=== PATIENT | female | born 1945 | race Caucasian/White ===

== ENCOUNTER 2017-03-14 20:52 | Inpatient (IN) | payer MEDICARE ==
[~2017-03-14] VITALS: Ht 160 cm; Wt 78.9 kg
[2017-03-14] MEDS ORDERED: SODIUM CHLORIDE 0.9% 1,000 ML IV ONE (20:59)
[2017-03-14] MEDS ORDERED: MORPHINE SULFATE 4 MG/ML, 1ML IVPush PRN ×2 (21:00→22:00)
[2017-03-14] MEDS ORDERED: SODIUM CHLORIDE FLUSH 10ML SYR IVF ONE (21:00)
[2017-03-14] MEDS ORDERED: ACETAMINOPHEN 500 MG TABLET PO ONE (21:00)
[2017-03-14] MEDS ORDERED: SODIUM CHLORIDE 0.9% 1,000ML IVBOLUS ONE ×2 (21:00→22:00)
[2017-03-14] MEDS ORDERED: ACETAMINOPHEN 500 MG TABLET ONE (21:20)
[2017-03-14] MEDS ORDERED: MORPHINE SULFATE 4 MG/ML, 1ML ONE (21:20)
[2017-03-14] MEDS ORDERED: ONDANSETRON 2MG/ML, 2ML ONE (21:53)
[2017-03-14] MEDS ORDERED: ONDANSETRON 2MG/ML, 2ML IVPush ONE (22:00)
[2017-03-14 22:52] LABS: BLOOD UREA NITROGEN 20 mg/dL (7-18)
[2017-03-14 22:55] LABS: ASPARTATE AMINO TRANSFERASE 35 U/L (15-37)
[2017-03-14 23:02] LABS: PATH.CAST-FLAG NOT PRESENT; SPERM-FLAG NOT PRESENT; SRC-FLAG NOT PRESENT; XTAL-FLAG NOT PRESENT; YLC-FLAG NOT PRESENT
[2017-03-14] MEDS ORDERED: OMNIPAQUE 350 MG/ML, 100ML BOTTLE ONE (23:15)
[2017-03-14] MEDS ORDERED: CEFTRIAXONE PMX 1GM/50ML 50 ML ONE (23:59)
[2017-03-15] MEDS ORDERED: CEFTRIAXONE PMX 1GM/50ML 50 ML IV ONE
[2017-03-15] MEDS ORDERED: SODIUM CHLORIDE 0.9% 1,000 ML IV SCH (01:34)
[2017-03-15] MEDS ORDERED: morphine SULFATE 10 MG/ML, 1ML IVPush PRN (02:00)
[2017-03-15] MEDS ORDERED: ONDANSETRON 2MG/ML, 2ML IVPush PRN (02:00)
[2017-03-15 02:30] VITALS: BP 110/73
[2017-03-15] MEDS: ENOXAPARIN 40 MG/0.4 ML SQ SCH (02:36)
[2017-03-15] MEDS ORDERED: LEVO25TA4 PO (02:49)
[2017-03-15] MEDS ORDERED: ATOR10TA9 PO (02:50)
[2017-03-15] MEDS ORDERED: Blood pressure med PO (02:51)
[2017-03-15] MEDS ORDERED: ASPI-496 PO (02:52)
[2017-03-15] MEDS ORDERED: CHOL2000 PO (02:52)
[2017-03-15] MEDS ORDERED: OXYcodone IR 5MG TABLET PO ONE (04:00)
[2017-03-15] MEDS: ACETAMINOPHEN 325 MG TABLET PO PRN ×3 (04:02→23:43)
[2017-03-15] MEDS ORDERED: ALBUTEROL SULFATE 2.5 MG/3 ML NPPB PRN (05:00)
[2017-03-15] MEDS ORDERED: LEVOTHYROXINE 25 MCG TABLET PO SCH (06:30)
[2017-03-15] MEDS ORDERED: OXYcodone IR 5MG TABLET PO PRN (06:30)
[2017-03-15 06:45] LABS: BLOOD UREA NITROGEN 15 mg/dL (7-18)
[2017-03-15 08:00] VITALS: BP_SYST 82; BP_SYST 84; BP_DIAS 48; BP_DIAS 55
[2017-03-15] MEDS: SENNA/DOCUSATE TABLET PO SCH (09:11)
[2017-03-15] MEDS: SODIUM CHLORIDE 0.9% 1,000 ML IV SCH ×2 (09:12→23:44)
[2017-03-15] MEDS ORDERED: SODIUM CHLORIDE 0.9%, 500ML IVBOLUS ONE (11:00)
[2017-03-15 13:54] VITALS: BP 96/58
[2017-03-15 17:59] VITALS: BP 110/71
[2017-03-15] MEDS ORDERED: ATOR20TA9 PO (20:17)
[2017-03-15] MEDS ORDERED: LEVO75TA5 PO (20:17)
[2017-03-15] MEDS ORDERED: LOSA1TAB16 PO (20:17)
[2017-03-15] MEDS: ASPIRIN 81 MG TABLET EC PO SCH (20:18)
[2017-03-15] MEDS ORDERED: ATORVASTATIN 10 MG TABLET PO SCH (21:00)
[2017-03-15 22:18] VITALS: BP 125/73
[2017-03-15] MEDS: ATORVASTATIN 20 MG TABLET PO SCH (22:33)
[2017-03-15] MEDS ORDERED: ALBU18HF INH (22:37)
[2017-03-15] MEDS ORDERED: FLUT12AE INH (22:38)
[2017-03-15] MEDS: CEFTRIAXONE PMX 1GM/50ML 50 ML IV SCH (23:43)
[2017-03-16] MEDS ORDERED: FLUT9.9S INH (00:01)
[2017-03-16 02:15] VITALS: BP 125/74
[2017-03-16] MEDS: ENOXAPARIN 40 MG/0.4 ML SQ SCH (02:19)
[2017-03-16] MEDS: LEVOTHYROXINE 75 MCG TABLET PO SCH (05:25)
[2017-03-16 07:32] VITALS: BP 135/81
[2017-03-16] MEDS ORDERED: SODIUM CHLORIDE 0.9% 1,000 ML IV SCH (08:00)
[2017-03-16] MEDS: SENNA/DOCUSATE TABLET PO SCH (09:21)
[2017-03-16] MEDS: FLUTICASONE FUROATE 200MCG/INH INH SCH (10:30)
[2017-03-16 14:00] VITALS: BP 133/70
[2017-03-16 19:30] VITALS: BP 147/82
[2017-03-16] MEDS: ATORVASTATIN 20 MG TABLET PO SCH (20:32)
[2017-03-16] MEDS: ASPIRIN 81 MG TABLET EC PO SCH (20:32)
[2017-03-16] MEDS: ACETAMINOPHEN 325 MG TABLET PO PRN (22:10)
[2017-03-17] MEDS: ENOXAPARIN 40 MG/0.4 ML SQ SCH (01:58)
[2017-03-17] MEDS: CEFTRIAXONE PMX 1GM/50ML 50 ML IV SCH (01:59)
[2017-03-17 02:08] VITALS: BP 147/75
[2017-03-17] MEDS: LEVOTHYROXINE 75 MCG TABLET PO SCH (05:28)
[2017-03-17 08:14] VITALS: BP 157/88
[2017-03-17] MEDS ORDERED: SULF1TAB24 PO (09:31)
[2017-03-17] MEDS ORDERED: BUDE10.2 INH (09:31)
[2017-03-17] MEDS: FLUTICASONE FUROATE 200MCG/INH INH SCH (09:48)
[2017-03-17] MEDS: SENNA/DOCUSATE TABLET PO SCH (09:48)
== END 2017-03-17 12:25 | disposition home or self-care (01) | DRG 872 ==
LOC: ED 03-15 01:16 → EDIP 03-15 01:20 → 4WST 03-15 01:58 → DCLOUNGE 03-17 11:42
PROVIDERS: ADMIT Family Medicine; ATTEND Family Medicine
DX: A41.9 Sepsis, unspecified organism (principal); N12 Tubulo-interstitial nephritis, not specified as acute or chronic; R65.20 Severe sepsis without septic shock; E03.9 Hypothyroidism, unspecified; E78.5 Hyperlipidemia, unspecified; J45.909 Unspecified asthma, uncomplicated; B96.20 Unspecified Escherichia coli [E. coli] as the cause of diseases classified elsewhere; N39.490 Overflow incontinence; Z96.643 Presence of artificial hip joint, bilateral; Z80.7 Family history of other malignant neoplasms of lymphoid, hematopoietic and related tissues; Z83.3 Family history of diabetes mellitus; Z87.440 Personal history of urinary (tract) infections; Z87.891 Personal history of nicotine dependence; Z90.710 Acquired absence of both cervix and uterus; Z79.82 Long term (current) use of aspirin; Z79.899 Other long term (current) drug therapy; Z88.5 Allergy status to narcotic agent
CPT/HCPCS: 36415; 71020; 74177; 80048; 80053; 81001; 83036; 83605; 84145; 85025; 87040; 87077; 87086; 87150; 87186; 96361; 96365; 96375; J0696; J1650; J2405; Q9967; J7030; J7040

== ENCOUNTER 2019-07-12 13:07 | Observation (INO) | payer MEDICARE ==
[~2019-07-12] VITALS: Ht 160 cm; Wt 76.6 kg
[~2019-07-12 13:07] MED LIST: ALBU18HF INH; ASPI-496 PO; ATOR10TA9 PO; ATOR20TA37 PO; BUDE10.2 INH; Blood pressure med PO; CHOL2000 PO; FLUT12AE INH; FLUT9.9S INH; LEVO25TA4 PO; LEVO75TA5 PO; LOSA1TAB19 PO; SULF1TAB24 PO
--- NOTE | 2019-07-12 13:30 | NUR ---
PT BIB P/V FOR NUMBNESS TO RIGHT HAND AND RIGHT SIDE OF FACE THAT STARTED AT ABOUT 1250 PER POT. NUMBNESS HAS RESOLVED BUT PT REPORTS APHASIA SYMPTOMS NOW. DR. WATTS AT BEDSIDE. [facility]UR[facility] WAS CALLED.
[2019-07-12 13:42] LABS: BASOPHILS # (AUTO) 0.04 x10^3/uL (0-0.1); BASOPHILS % (AUTO) 1 % (0-1); EOSINOPHILS # (AUTO) 0.12 x10^3/uL (0-0.4); EOSINOPHILS % (AUTO) 2 % (1-7); LYMPHOCYTES # (AUTO) 2.46 x10^3/uL (1-3.4); LYMPHOCYTES % (AUTO) 33 % (22-44); MD NO; MEAN CORPUSCULAR HEMOGLOBIN 31.2 pg (27.0-34.8); MEAN CORPUSCULAR VOLUME 94.6 fL (80-100); MONOCYTES # (AUTO) 0.82 x10^3/uL (0.2-0.8); MONOCYTES % (AUTO) 11 % (2-9); NEUTROPHILS # (AUTO) 3.96 x10^3/uL (1.8-6.8); NEUTROPHILS % (AUTO) 54 % (42-75); PLATELET COUNT 479 x10^3/uL (130-400); RED BLOOD COUNT 4.52 x10^6/uL (3.82-5.3); RED CELL DISTRIBUTION WIDTH 14.3 % (9.6-15.2)
[2019-07-12 13:50] LABS: ANION GAP 6 mmol/L (5-15); CALCIUM 9.2 mg/dL (8.5-10.1); CHLORIDE 104 mmol/L (98-107); CREATININE 1.02 mg/dL (0.55-1.02)
--- NOTE | 2019-07-12 13:56 | NUR ---
PT BACK FROM CT. MRI NOT ABLE TO ACCEPT PT WITH BOTH TABLES BEING OCCUPIED. PT TAKEN BACK TO ER WHERE EKG CAN BE DONE.
[2019-07-12] MEDS ORDERED: OMNIPAQUE 350 MG/ML, 100ML BOTTLE ONE (14:00)
--- NOTE | 2019-07-12 14:03 | NUR ---
PT C/O LEFT SIDED NORMAN ON RETURN FROM CT. DR. WATTS AWARE.
--- NOTE | 2019-07-12 14:09 | NUR ---
DR. WATTS AT BEDSIDE. PT REPORTS NORMAN IS GETTER BETTER. PT HAS HX OF MIGRAINES.
[2019-07-12] MEDS ORDERED: METOCLOPRAMIDE 5 MG/ML, 2ML ONE (14:11)
[2019-07-12] MEDS ORDERED: DIPHENHYDRAMINE 50 MG/ML, 1ML ONE (14:11)
--- NOTE | 2019-07-12 14:15 | NUR ---
PT REPORTS "IT SEEMS LIKE MIGRAINE IS GOING AWAY" AFTER MEDS.
[2019-07-12] MEDS ORDERED: FLUT1BLS INH (14:23)
[2019-07-12] MEDS ORDERED: HYDROCHLOROTH12.5 MG PO (14:23)
[2019-07-12] MEDS ORDERED: LOSA100T14 PO (14:23)
--- NOTE | 2019-07-12 14:23 | NUR ---
PT TO MRI.
[2019-07-12] MEDS ORDERED: DIPHENHYDRAMINE 50 MG/ML, 1ML IVPush ONE (14:30)
[2019-07-12] MEDS ORDERED: METOCLOPRAMIDE 5 MG/ML, 2ML IVPush ONE (14:30)
--- NOTE | 2019-07-12 14:40 | NUR ---
REPORT TO IVY STOREY.
--- NOTE | 2019-07-12 14:43 | NUR ---
REPORT FROM ANTONELLA STOREY, PT IN MRI AT THIS TIME
--- NOTE | 2019-07-12 14:57 | NUR ---
AMBULATED WITH STAND BY ASSIST TO BATHROOM. RESTING BACK IN BED.
[2019-07-12 15:14] LABS: MICROSCOPIC AUTO
[2019-07-12 15:17] LABS: CULTURE INDICATED? YES
[2019-07-12] MEDS ORDERED: CEFDINIR 300 MG CAPSULE PO ONE (15:30)
--- NOTE | 2019-07-12 16:00 | NUR ---
Patient is resting comfortably in bed. Vital Signs within normal limits.
[2019-07-12] MEDS ORDERED: CEFDINIR 300 MG CAPSULE ONE (16:18)
--- NOTE | 2019-07-12 17:35 | NUR ---
REPORT CALLED TO RECIEVEING [place] COO[facility]. NO QUESTIONS AT THIS TIME.
[2019-07-12] MEDS ORDERED: BISACODYL 10 MG SUPP PR PRN (19:00)
[2019-07-12] MEDS ORDERED: IBUPROFEN 600 MG TABLET PO PRN (19:00)
[2019-07-12] MEDS ORDERED: DOCUSATE 100 MG CAPSULE PO PRN (19:00)
[2019-07-12] MEDS ORDERED: ENALAPRILAT 1.25 MG/ML, 2ML IVPush PRN (19:00)
[2019-07-12] MEDS ORDERED: ACETAMINOPHEN 325 MG TABLET PO PRN (19:00)
[2019-07-12 19:06] VITALS: BP 118/76
[2019-07-12] MEDS ORDERED: ALBUTER HHN PRN (20:00)
[2019-07-12] MEDS ORDERED: SUMATRIPTAN 50 MG TABLET PO PRN (20:00)
[2019-07-12] MEDS ORDERED: ASA/APAP/ CAFFEINE TABLET PO PRN (20:30)
[2019-07-12] MEDS: HEPARIN 5,000 UNITS/ML, 1ML SQ SCH (20:36)
[2019-07-12] MEDS: CEFDINIR 300 MG CAPSULE PO SCH (20:36)
[2019-07-12] MEDS ORDERED: CHOLECALCIFEROL 1,000 UNIT TABLET PO SCH (21:00)
[2019-07-12] MEDS ORDERED: ASPIRIN 81 MG TABLET EC PO SCH (21:00)
[2019-07-12] MEDS ORDERED: ATORVASTATIN 20 MG TABLET PO SCH (21:00)
[2019-07-13 00:59] VITALS: BP 98/62
[2019-07-13] MEDS: HEPARIN 5,000 UNITS/ML, 1ML SQ SCH ×2 (05:52→13:54)
[2019-07-13] MEDS ORDERED: LEVOTHYROXINE 75 MCG TABLET PO SCH (06:00)
[2019-07-13 06:18] LABS: BASOPHILS # (AUTO) 0.05 x10^3/uL (0-0.1); BASOPHILS % (AUTO) 1 % (0-1); EOSINOPHILS # (AUTO) 0.11 x10^3/uL (0-0.4); EOSINOPHILS % (AUTO) 1 % (1-7); LYMPHOCYTES # (AUTO) 2.55 x10^3/uL (1-3.4); LYMPHOCYTES % (AUTO) 34 % (22-44); MD NO; MEAN CORPUSCULAR HEMOGLOBIN 30.8 pg (27.0-34.8); MEAN CORPUSCULAR HGB CONC 32.4 g/dL (32.4-35.8); MEAN CORPUSCULAR VOLUME 94.8 fL (80-100); MEAN PLATELET VOLUME 8.3 fL (7.4-10.4); MONOCYTES # (AUTO) 0.79 x10^3/uL (0.2-0.8); MONOCYTES % (AUTO) 11 % (2-9); NEUTROPHILS # (AUTO) 4.02 x10^3/uL (1.8-6.8); NEUTROPHILS % (AUTO) 54 % (42-75); PLATELET COUNT 419 x10^3/uL (130-400); RED BLOOD COUNT 4.19 x10^6/uL (3.82-5.3); RED CELL DISTRIBUTION WIDTH 14.2 % (9.6-15.2)
[2019-07-13 06:30] LABS: ALANINE AMINOTRANSFERASE 23 U/L (12-78); ALBUMIN 3.4 g/dL (3.4-5.0); ANION GAP 8 mmol/L (5-15); CALCIUM 8.8 mg/dL (8.5-10.1); CHLORIDE 106 mmol/L (98-107)
[2019-07-13 06:38] LABS: ALKALINE PHOSPHATASE 80 U/L (45-117); BILIRUBIN,TOTAL 0.4 mg/dL (0.2-1.0); CHOL/HDL RATIO 3.6; CHOLESTEROL, TOTAL 164 mg/dL (140-239); CREATININE 1.05 mg/dL (0.55-1.02); HDL CHOL % 28 % (28-40); HDL CHOLESTEROL (DIRECT) 46 mg/dL (40-60); LDL CHOLESTEROL,CALCULATED 84 mg/dL (54-169); LDL/HDL RATIO 1.8 (0.5-3.0); TOTAL PROTEIN 7.2 g/dL (6.4-8.2); TRIGLYCERIDES 169 mg/dL (50-200); VLDL CHOLESTEROL 34 mg/dL (0-25)
[2019-07-13 07:12] LABS: HEMOGLOBIN A1C 5.8 % (4.2-6.3)
[2019-07-13 07:15] VITALS: BP 105/70
[2019-07-13] MEDS ORDERED: FLUTICASONE/VILANTEROL 200-25MCG/INH INH SCH (09:00)
[2019-07-13] MEDS ORDERED: LOSARTAN 50MG TABLET PO SCH (09:00)
[2019-07-13] MEDS ORDERED: HYDROCHLOROTHIAZIDE 12.5 MG CAPSULE PO SCH (09:00)
[2019-07-13] MEDS: CEFDINIR 300 MG CAPSULE PO SCH (09:29)
[2019-07-13] MEDS ORDERED: ALBUTEROL SULFATE 2.5 MG/3 ML HHN SCH (10:00)
[2019-07-13] MEDS ORDERED: DIPHENHYDRAMINE 50 MG/ML, 1ML IVPush ONE (10:27)
[2019-07-13] MEDS ORDERED: PROCHLORPERAZINE 5 MG/ML, 2ML IVPush ONE (10:30)
[2019-07-13] MEDS ORDERED: CEFD300C37 PO (14:25)
[2019-07-13] MEDS ORDERED: ALBUTEROL SULFATE 2.5 MG/3 ML NPPB SCH (15:00)
[2019-07-13 15:45] VITALS: BP 100/66
[2019-07-13] MEDS ORDERED: BUDESONIDE 0.5 MG/2 ML INHA HHN SCH (21:00)
[2019-07-13] MEDS ORDERED: BUDESONIDE 0.5 MG/2 ML INHA NPPB SCH (21:00)
== END 2019-07-13 19:30 | disposition home or self-care (01) ==
LOC: ED 15:19 → INTOOBSV 15:20 → EDIP 15:20 → SUATTDRO 16:14 → ED 17:34 → 4EST 18:08
PROVIDERS: ADMIT Internal Medicine; ATTEND Hospitalist
DX: G45.9 Transient cerebral ischemic attack, unspecified (principal); G43.909 Migraine, unspecified, not intractable, without status migrainosus; N39.0 Urinary tract infection, site not specified; Z88.5 Allergy status to narcotic agent; E03.9 Hypothyroidism, unspecified; G46.0 Middle cerebral artery syndrome; G47.30 Sleep apnea, unspecified; J45.909 Unspecified asthma, uncomplicated; Z87.891 Personal history of nicotine dependence
CPT/HCPCS: 36415; 70450; 70496; 70498; 70551; 80047; 80048; 80053; 80061; 81001; 82040; 83036; 83735; 84443; 85025; 87077; 87086; 87186; 93005; 93306; 96372; 96374; 96375; 96376; 97161; 97166; 99284; G0378; J0780; J1200; J1644; J2765; Q9967